=== PATIENT | female | born 1980 | race Caucasian/White ===

== ENCOUNTER → 2024-09-07 | Outpatient (CLI) | payer OTHER ==
--- NOTE | 2024-09-10 09:43 | MM ---
Reason for Exam: Screening (asymptomatic). Patient History: Menarche at age 11. Patient has no children. Maternal grandmother had breast cancer, age 50. Risk Values: Lisa 5 year model risk: 0.9%. NCI Lifetime model risk: 10.6%. Prior Study Comparison: No prior studies available for comparison. Tissue Density: There are scattered areas of fibroglandular density. Findings: Analyzed By CAD. There is 5 to 6 mm possible obscured mass in the middle depth upper outer aspect right breast. Overall Assessment: Incomplete: need additional imaging evaluation, BI-RAD 0 Management: Special View Mammogram of the right breast. Return for additional spot views and true lateral view. Patient should continue monthly self-breast exams. A clinical breast exam by your physician is recommended on an annual basis. This exam should not preclude additional follow-up of suspicious palpable abnormalities. Note on Lisa scores and lifetime risk: 1. A Lisa score greater than 3% is considered moderate risk. If this is the case, consider specialist referral to assess eligibility for a risk reducing agent. 2. If overall lifetime risk for the development of breast cancer is 20% or higher, the patient may qualify for future screening with alternating mammogram and breast MRI. [facility], , 09/10/2024 9:39 AM. Electronically signed and approved by: Sidney Keith M.D.
== END | disposition home or self-care (01) ==
LOC: RADMAMWWP 14:36
PROVIDERS: ATTEND Family Medicine
DX: Z12.31 Encounter for screening mammogram for malignant neoplasm of breast (principal); R92.323 Mammographic fibroglandular density, bilateral breasts; Z80.3 Family history of malignant neoplasm of breast
CPT/HCPCS: 77067

== ENCOUNTER → 2024-09-10 | Outpatient (CLI) | payer OTHER ==
--- NOTE | 2024-09-10 15:18 | MM ---
Reason for Exam: Additional evaluation requested from abnormal screening. Last screening mammogram was performed less than 1 month ago. Patient History: Menarche at age 11. Patient has no children. Maternal grandmother had breast cancer, age 50. Risk Values: Lisa 5 year model risk: 0.9%. NCI Lifetime model risk: 10.6%. Tissue Density: Right: There are scattered areas of fibroglandular density. Findings: Analyzed By CAD. No suspicious mass persists on additional views. Overall Assessment: Negative, BI-RAD 1 Management: Screening Mammogram of both breasts in 1 year. . Results were given to the patient verbally at the time of exam. Patient should continue monthly self-breast exams. A clinical breast exam by your physician is recommended on an annual basis. This exam should not preclude additional follow-up of suspicious palpable abnormalities. Note on Lisa scores and lifetime risk: 1. A Lisa score greater than 3% is considered moderate risk. If this is the case, consider specialist referral to assess eligibility for a risk reducing agent. 2. If overall lifetime risk for the development of breast cancer is 20% or higher, the patient may qualify for future screening with alternating mammogram and breast MRI. [facility], , 09/10/2024 3:14 PM. Electronically signed and approved by: Sidney Keith M.D.
== END | disposition home or self-care (01) ==
LOC: RADMAMWWP 14:36
PROVIDERS: ATTEND Family Medicine
DX: R92.8 Other abnormal and inconclusive findings on diagnostic imaging of breast (principal); R92.321 Mammographic fibroglandular density, right breast; Z80.3 Family history of malignant neoplasm of breast
CPT/HCPCS: 77065; G0279; 77061

== ENCOUNTER → 2024-09-10 | Outpatient (CLI) | payer OTHER ==
--- NOTE | 2024-09-10 18:20 | US ---
EXAMINATION TYPE: US pelvic complete DATE OF EXAM: 09/10/2024 COMPARISON: NONE CLINICAL INDICATION: Female, 43 years old with history of R1084, R10.2; Pelvic pain with bowel moveme nt felt left sided fullness. Patient denies any signs, symptoms, or relevant history TECHNIQUE: Transabdominal (TA). Transabdominal grayscale sonographic images of the pelvis were acquired. Transvaginal sonographic im ages were not medically necessary Doppler imaging: Not performed. FINDINGS: Date of LMP: 07/23/2024 EXAM MEASUREMENTS: Uterus: 7.5 x 3.2 x 5.4 cm Endometrial Stripe: 0.6 cm Right Ovary: 5.1 x 2.6 x 2.4 cm Left Ovary: 2.1 x 1.3 x 1.8 cm 1. Uterus: Anteverted wnl 2. Endometrium: wnl 3. Right Ovary: wnl - dominant follicles noted 4. Left Ovary: wnl 5. Bilateral Adnexa: wnl 6. Posterior cul-de-sac: wnl IMPRESSION: Dominant follicle right ovary. Otherwise unremarkable study. O-RADS 2021 [email or web address] [email or web address], , 09/10/2024 6:18 PM
== END | disposition home or self-care (01) ==
LOC: RADUSWWP 14:39
PROVIDERS: ATTEND Family Medicine
DX: R10.84 Generalized abdominal pain (principal); R10.2 Pelvic and perineal pain
CPT/HCPCS: 76856